=== PATIENT | male | born 1960 | race Caucasian/White ===

== ENCOUNTER 2020-01-19 18:09 | Emergency (ER) | payer OTHER ==
[~2020-01-19] VITALS: Ht 170.2 cm; Wt 73.5 kg
[2020-01-19 18:28] VITALS: BP 130/85
== END 2020-01-19 19:41 | disposition home or self-care (01) ==
LOC: ER 18:10
DX: S61.212A Laceration without foreign body of right middle finger without damage to nail, initial encounter (principal); Z87.891 Personal history of nicotine dependence; W45.8XXA Other foreign body or object entering through skin, initial encounter; Y93.89 Activity, other specified; Y92.89 Other specified places as the place of occurrence of the external cause; Y99.0 Civilian activity done for income or pay
CPT/HCPCS: 12002; 99282